=== PATIENT | male | born 1960 | race African-American/Black ===

== ENCOUNTER 2024-02-24 22:36 | Emergency (ER) | payer MEDICAID ==
[~2024-02-24] VITALS: Ht 170.2 cm; Wt 68.0 kg
[~2024-02-24 22:36] MED LIST: AMLO5TAB88 MT; ASPI-1497 MT
[2024-02-24 22:41] VITALS: BP 157/82; TEMP 97.8; O2SAT 99
[2024-02-24] MEDS: ACETAMINOPHEN 325MG TABLET PO ONE (23:41)
[2024-02-25] MEDS: TETANUS, DIPHTHERIA, PERTUSSIS VAC/PF 0.5ML (>10YR OLD) IM ONE (00:15)
[2024-02-25 01:41] VITALS: PULSE 71; RESP 16
== END 2024-02-25 01:43 | disposition home or self-care (01) ==
LOC: ER 22:36
DX: S01.112A Laceration without foreign body of left eyelid and periocular area, initial encounter (principal); I10 Essential (primary) hypertension; X58.XXXA Exposure to other specified factors, initial encounter; Y93.89 Activity, other specified; Y92.89 Other specified places as the place of occurrence of the external cause; Y99.8 Other external cause status
CPT/HCPCS: 73030; 70450; 90715; 12013; 99285; 90471; Z7610 ×3